=== PATIENT | male | born 1970 | race Caucasian/White ===

== ENCOUNTER 2024-05-22 08:40 | Outpatient (CLI) | payer BC | END 2024-05-22 08:41 | disposition home or self-care (01) | LOC: CSHCT 08:40 | PROVIDERS: ATTEND Internal Medicine Gastroenterology | DX: K30 Functional dyspepsia (principal); R10.13 Epigastric pain; K21.9 Gastro-esophageal reflux disease without esophagitis; K44.9 Diaphragmatic hernia without obstruction or gangrene; N28.9 Disorder of kidney and ureter, unspecified | CPT/HCPCS: 74177 ==

== ENCOUNTER 2024-05-29 12:25 | Outpatient (CLI) | payer BC | END 2024-05-29 12:26 | disposition home or self-care (01) | LOC: CSHULT 12:25 | PROVIDERS: ATTEND Internal Medicine Gastroenterology | DX: R93.429 Abnormal radiologic findings on diagnostic imaging of unspecified kidney (principal); N28.1 Cyst of kidney, acquired; K80.20 Calculus of gallbladder without cholecystitis without obstruction; K82.8 Other specified diseases of gallbladder | CPT/HCPCS: 76700 ==

== ENCOUNTER 2024-06-18 15:05 | Outpatient (CLI) | payer BC ==
[2024-06-18 15:58] LABS: Hematocrit 43.2 % (38.8-50.0); Hemoglobin 14.8 g/dL (13.5-17.5); Mean Corpuscular HGB CONC 34.3 g/dL (32.0-36.0); Mean Corpuscular Hemoglobin 30.6 pg (27.0-33.0); Mean Corpuscular Volume 89.4 fL (81.2-95.1); Mean Platelet Volume 9.1 fL (7.4-10.4); Platelet Count 203 10x3/uL (150-450); RBC Distribution Width 12.1 % (11.5-14.5); Red Blood Cell (RBC) Count 4.83 10x6/uL (4.32-5.72); White Blood Cell (WBC) Count 5.4 10x3/uL (3.5-10.5)
[2024-06-18 16:15] LABS: ALT (SGPT) 22 U/L (8-55); AST (SGOT) 16 U/L (5-34); Albumin 4.1 g/dL (3.5-5.0); Alkaline Phosphatase 79 U/L (40-110); Anion Gap 11 mmol/L (10-20); BUN (Urea Nitrogen) 15 mg/dL (8.4-25.7); Bilirubin, Total 0.5 mg/dL (0.2-1.2); Calc. Creatinine Clearance 0 mL/min (70-130); Calcium 9.6 mg/dL (7.8-10.44); Carbon Dioxide 26 mmol/L (22-29); Chloride 107 mmol/L (98-107); Estimated GFR 77; Globulin 2.9 g/dL (2.4-3.5); Glucose 100 mg/dL (70-105); Potassium 4.4 mmol/L (3.5-5.1); Sodium 140 mmol/L (136-145)
== END 2024-06-18 15:06 | disposition home or self-care (01) ==
LOC: CSHLAB 15:05
PROVIDERS: ATTEND Surgery
DX: Z01.818 Encounter for other preprocedural examination (principal); K80.20 Calculus of gallbladder without cholecystitis without obstruction
CPT/HCPCS: 80053; 85027; 93005; 93010

== ENCOUNTER 2024-06-19 08:58 | Day surgery (SDC) | payer BC ==
[2024-06-18 15:40] VITALS: BMI 24.3
[2024-06-19] MEDS ORDERED: ceFOXitin 1 GM VIAL ONE (09:27)
[2024-06-19] MEDS ORDERED: Indocyanine Green 25 MG/10 ML VIAL ONE (09:27)
[2024-06-19] MEDS ORDERED: Bupivacaine/Epinephrine 0.25% 30 ML VIAL ONE (09:28)
[2024-06-19] MEDS ORDERED: Midazolam HCl 2 mg/2 ml Vial ONE (09:44)
[2024-06-19] MEDS ORDERED: Acetaminophen 500 MG TAB ONE (09:44)
[2024-06-19] MEDS ORDERED: Famotidine/PF 20 mg/2ml Vial ONE (09:44)
[2024-06-19] MEDS ORDERED: HYDROmorphone 0.5 MG/0.5 ML SYRINGE ONE (10:38)
[2024-06-19] MEDS ORDERED: Dexmedetomidine 200 MCG/2 ML VIAL ONE (10:38)
[2024-06-19] MEDS ORDERED: Ondansetron PF 4 MG/2 ML Vial ONE (10:41)
[2024-06-19] MEDS ORDERED: fentaNYL 50 mcg/mL 1 mL Vial ONE ×2 (10:41→12:53)
[2024-06-19] MEDS ORDERED: PROPOFOL 20 ML ONE (10:41)
[2024-06-19] MEDS ORDERED: Rocuronium Bromide 10 MG/ML (10ML VIAL) ONE (10:41)
[2024-06-19] MEDS ORDERED: Dexamethasone 20 MG/5 ML VIAL ONE (10:41)
[2024-06-19] MEDS ORDERED: Lidocaine 2% PF 5 ML VIAL ONE (10:41)
[2024-06-19] MEDS ORDERED: SUGAMMADEX SODIUM 200 MG/2 ML VIAL ONE (11:43)
[2024-06-19] MEDS ORDERED: HYDROcodone/Acetaminophen 5/325 mg Tablet ONE (13:20)
== END 2024-06-19 13:45 | disposition home or self-care (01) ==
LOC: CSHSDC 08:58
PROVIDERS: ATTEND Surgery
PROC: 0FT44ZZ Resection of Gallbladder, Percutaneous Endoscopic Approach (ICD-10-PCS; principal; 2024-06-19)
DX: K80.10 Calculus of gallbladder with chronic cholecystitis without obstruction (principal); K66.0 Peritoneal adhesions (postprocedural) (postinfection); D36.0 Benign neoplasm of lymph nodes; F41.9 Anxiety disorder, unspecified; E78.5 Hyperlipidemia, unspecified; I10 Essential (primary) hypertension; F31.9 Bipolar disorder, unspecified; K21.9 Gastro-esophageal reflux disease without esophagitis; Z98.890 Other specified postprocedural states; Z88.8 Allergy status to other drugs, medicaments and biological substances; Z88.5 Allergy status to narcotic agent; Z88.1 Allergy status to other antibiotic agents; Z79.51 Long term (current) use of inhaled steroids; Z79.899 Other long term (current) drug therapy
CPT/HCPCS: 88304; C1889; J0694; J1100; J2250; J2405; J2704; J3010; J3490; S2900